=== PATIENT | female | born 1950 | race Caucasian/White ===

== ENCOUNTER 2023-06-12 20:24 | Emergency (ER) | payer SELFPAY ==
[~2023-06-12] VITALS: Ht 167.6 cm; Wt 90.7 kg
[2023-06-12 20:35] VITALS: TEMP 98.7
[2023-06-12] MEDS ORDERED: ACETAMINOPHEN ES 500 MG TABLET ONE (21:00)
[2023-06-12] MEDS ORDERED: TDAP [DIPH/PERTUSSIS/TET] 0.5 ML VIAL IM ONE (21:00)
[2023-06-12] MEDS: ACETAMINOPHEN 325 MG TABLET PO ONE (21:01)
[2023-06-12] MEDS: TDAP [DIPH/PERTUSSIS/TET] 0.5 ML VIAL IM ONE (21:01)
[2023-06-12] MEDS: IV NS 0.9% 1,000 ML IV ONE (21:20)
[2023-06-12 21:29] LABS: BASOPHILS % (AUTO) 0.3 % (0.0-2.0); EOSINOPHILS # (AUTO) 0.1 K/uL (0.0-0.7); EOSINOPHILS % (AUTO) 0.8 % (0.0-6.0); HEMATOCRIT 43 % (33-45); HEMOGLOBIN 14.5 g/dL (11.5-14.8); LYMPHOCYTES # (AUTO) 0.3 K/uL (0.8-4.8); MEAN CORPUSCULAR HEMOGLOBIN 31 PG (26.0-33.0); MEAN CORPUSCULAR HGB CONC 34 g/dl (31.0-36.0); MEAN CORPUSCULAR VOLUME 92 fL (82-100); MONOCYTES # (AUTO) 0.5 K/uL (0.1-1.30); MONOCYTES % (AUTO) 5.5 % (2.0-12.0); NEUTROPHILS # (AUTO) 7.5 K/uL (1.8-8.9); NEUTROPHILS % (AUTO) 89.4 % (43.0-81.0); PLATELET COUNT (AUTO) 179 K/uL (150-450); RED BLOOD CELL COUNT(AUTO) 4.67 MIL/uL (4.0-5.2); RED CELL DISTRIBUTION WIDTH 13.6 % (11.5-15.0); WHITE BLOOD COUNT (AUTO) 8.3 K/uL (4.3-11.0)
[2023-06-12 21:37] LABS: CALCIUM, SERUM 10.1 mg/dL (8.5-10.1); CARBON DIOXIDE 27 mmol/L (21-32); CHLORIDE 103 mmol/L (98-107); CREATININE 0.5 mg/dL (0.6-1.3); GLUCOSE 106 mg/dL (74-106); SODIUM SERUM 136 mmol/L (136-145); UREA NITROGEN, BLOOD 18 mg/dL (7-18)
[2023-06-12 22:34] VITALS: BP 122/77; O2SAT 99
[2023-06-13] MEDS ORDERED: AMOX-430 PO (00:21)
[2023-06-13] MEDS ORDERED: AMOX/CLAVULANATE 875 MG TABLET PO ONE (00:30)
== END 2023-06-13 01:05 | disposition home or self-care (01) ==
LOC: ER 20:36
DX: S00.31XA Abrasion of nose, initial encounter (principal); R55 Syncope and collapse; I10 Essential (primary) hypertension; E78.5 Hyperlipidemia, unspecified; W18.39XA Other fall on same level, initial encounter; Y93.89 Activity, other specified; Y92.89 Other specified places as the place of occurrence of the external cause; Y99.8 Other external cause status
CPT/HCPCS: 99285; 70450; 96360; 90471; 93005; 90715; 70486; 85025; 80048; 36415; 84484 ×2; J7030; A6403